=== PATIENT | male | born 1990 | race African-American/Black ===

== ENCOUNTER 2019-07-21 16:37 | Emergency (ER) | payer MEDICAID ==
[~2019-07-21] VITALS: Ht 175.3 cm; Wt 59.1 kg
[2019-07-21] MEDS ORDERED: IBUPROFEN 600MG TABLET PO ONE (17:15)
[2019-07-21 17:36] LABS: CHLORIDE 102 mEq/L (98-107)
[2019-07-21 18:20] LABS: BASOPHILS % 0.9 % (0.0-2.0); EOSINOPHILS % 2.7 % (0.0-5.0); HEMATOCRIT. 51.4 % (42.0-52.0); HEMOGLOBIN. 17.6 g/dL (14.0-18.0); LYMPHOCYTES % 16.2 % (20.0-50.0); MEAN CORPUSCULAR HEMOGLOBIN 27.5 pg (28.0-32.0); MEAN CORPUSCULAR VOLUME 80.4 fL (80.0-94.0); MEAN PLATELET VOLUME 8.2 fl (7.4-10.4); MONOCYTES % 8.4 % (2.0-8.0); NEUTROPHILS % 71.8 % (40.0-76.0); PLATELET 227 x1000/uL (130-400); RED BLOOD CELL COUNT 6.39 mill/uL (4.7-6.1); RED CELL DISTRIBUTION WIDTH 12.9 % (11.6-14.6)
[2019-07-21 18:38] VITALS: BP 121/81
== END 2019-07-21 18:56 | disposition home or self-care (01) ==
LOC: ER 16:37
DX: R07.89 Other chest pain (principal); K21.9 Gastro-esophageal reflux disease without esophagitis; E05.90 Thyrotoxicosis, unspecified without thyrotoxic crisis or storm
CPT/HCPCS: 36415; 71045; 80053; 84443; 85025; 93005; 99285